=== PATIENT | female | born 1965 | race Caucasian/White ===

== ENCOUNTER 2016-09-29 07:49 | Inpatient (IN) ==
--- NOTE | 2016-09-29 07:44 | Discharge Summary ---
<Darcie Ahumada - Last Filed: 09/29/16 10:09> Date of Encounter: 09/29/16 - Discharge Diagnosis (1) Arthritis of knee Priority: Primary Status: Acute - Discharge Medications Home Medications: Atorvastatin [Lipitor] 40 mg PO HS 03/12/16 [History] EPINEPHrine [Epipen JR] 0.15 mg IJ ONCE #1 mls 03/12/16 [Rx] Loratadine [Claritin] 10 mg PO DAILY 03/12/16 [History] Aspirin Enteric Coated [Aspirin EC] 325 mg PO DAILY #21 tablet. 09/29/16 [Rx] BuPROPion XL (24 HR) [Wellbutrin XL] 150 mg PO DAILY 09/29/16 [History] Celecoxib [Celebrex] 200 mg PO DAILY 09/29/16 [History] Dicyclomine [Bentyl] 20 mg PO QID 09/29/16 [History] Duloxetine HCl [Cymbalta] 60 mg PO DAILY 09/29/16 [History] Gabapentin [Neurontin] 600 mg PO TID 09/29/16 [History] Metoprolol XL (24 HR) Succ [Toprol Xl] 50 mg PO DAILY 09/29/16 [History] Omeprazole [PriLOSEC] 40 mg PO BID 09/29/16 [History] OxyCODONE Immed Rel [Roxicodone 5 MG] 5 - 10 mg PO Q6HR PRN #40 tablet 09/29/16 [Rx] TraZODone 50 mg PO HS 09/29/16 [History] Allergies/Adverse Reactions: Allergies Sulfa (Sulfonamide Antibiotics) Allergy (Verified 09/29/16 08:41) Hives venom-honey bee [bee venom (honey bee)] Allergy (Verified 09/29/16 08:41) Anaphylaxis Primary care physician: Jag French CNP - Patient Status Disposition: Home, Self-Care Condition: Good - Discharge Instructions Follow Up With: Jag French CNP [Primary Care Provider] - - Hospital Course Hospital course: Ms. Mccoy is a 51 year old female - Time Spent with Patient Total time spent providing and/or coordinating discharge services: <Suman Angel - Last Filed: 10/01/16 07:52> Date of Encounter: 10/01/16 Time of Encounter: 07:52 - Discharge Diagnosis (1) Arthritis of knee Status: Acute (2) Arthritis of left knee Priority: Primary Status: Acute (3) Hypertension Priority: Secondary Status: Acute Qualifiers: Hypertension type: unspecified secondary hypertension Qualified Code(s): I15.9 - Secondary hypertension, unspecified; I15 - Secondary hypertension (4) Hyperlipidemia Priority: Secondary Status: Acute Qualifiers: Hyperlipidemia type: unspecified Qualified Code(s): E78.5 - Hyperlipidemia , unspecified (5) Acute blood loss anemia Status: Acute Primary care physician: Jag French CNP - Patient Status Functional capacity at discharge: uses cane/walker Overall status at discharge: patient is progressing back to baseline - Hospital Course Hospital course: Ms. Mccoy is a 51 year old female The patient had an uneventful postoperative course. They received antibiotics and physical therapy and were discharged in stable condition. There will follow -up in the office in 2 weeks. Aspirin DVT prophylaxis - Time Spent with Patient Total time spent providing and/or coordinating discharge services:
--- NOTE | 2016-09-29 08:01 | History & Physical Report ---
Date of Encounter: 09/29/16 Time of Encounter: 08:00 24 Hour HP Update - Instructions Instructions: If the History and Physical is less than 30 days old and was completed prior to A.M. admission and or procedure and has NOT been updated on calendar day of procedure please complete this update prior to performing procedure. - Update Patient reports changes in Medical Condition: No Changes in assessment/condition: No Changes in Medication: No Preop tests/diagnostics Reviewed: Yes Surgery Remains Indicated: Yes Consent for Planned Operative Procedure(s) Verified: Yes - Pre-Operative Checklist Preoperative Checklist Indicated: No Prophylactic Antibiotic Ordered: Yes Is VTE Prophylaxis Indicated?: Yes
[2016-09-29] MEDS ORDERED: Albuterol 2.5 MG/3 ML NEBULIZER IH ONE (08:24)
[2016-09-29] MEDS ORDERED: CeFAZolin Pre 2,000 MG/100 ML 2,000 MG/100 ML BAG IVPB ONE (08:24)
[2016-09-29] MEDS ORDERED: Ringers Solution, Lactated 500 ML IVC SCH (08:30)
[2016-09-29] MEDS ORDERED: *HR* FentaNYL (PF) 100 MCG/2 ML VIAL ONE (09:37)
[2016-09-29] MEDS ORDERED: *HR* Propofol 200 MG/20 ML VIAL IVP ONE (09:37)
[2016-09-29] MEDS ORDERED: *HR* Midazolam HCl 2 MG/2 ML VIAL ONE (09:37)
[2016-09-29] MEDS ORDERED: Lidocaine -MPF 2% 2 ML VIAL ONE (09:42)
--- NOTE | 2016-09-29 10:20 | Anesthesia Evaluation PreOp ---
Date of Encounter: 09/29/16 Time of Encounter: 10:15 - Past History Planned Operation: Left TKA Cardiac History: HTN, Hyperlipidemia Pulmonary History: Denies Any Significant HX MACHINE HEEL SEAT FITTER History: Denies Any Significant HX Other Medical History: Denies Any Significant HX : No Alcohol Use: none Drug use: none Medications and Allergies Atorvastatin [Lipitor] 40 mg PO HS 03/12/16 [History] EPINEPHrine [Epipen JR 2-Chris] 0.15 mg IJ ONCE #1 mls 03/12/16 [Rx] Loratadine [Claritin] 10 mg PO DAILY 03/12/16 [History] Aspirin Enteric Coated [Aspirin EC] 325 mg PO DAILY #21 tablet. 09/29/16 [Rx] Celecoxib [Celebrex] 200 mg PO DAILY 09/29/16 [History] Dicyclomine [Bentyl] 20 mg PO QID 09/29/16 [History] Duloxetine HCl [Cymbalta] 60 mg PO DAILY 09/29/16 [History] Gabapentin [Neurontin] 600 mg PO TID 09/29/16 [History] Metoprolol XL (24 HR) Succ [Toprol Xl] 50 mg PO DAILY 09/29/16 [History] Omeprazole [PriLOSEC] 40 mg PO BID 09/29/16 [History] OxyCODONE Immed Rel [Roxicodone 5 MG] 5 - 10 mg PO Q6HR PRN #40 tablet 09/29/16 [Rx] TraZODone 50 mg PO HS 09/29/16 [History] Allergies Sulfa (Sulfonamide Antibiotics) Allergy (Verified 09/29/16 08:41) Hives venom-honey bee [bee venom (honey bee)] Allergy (Verified 09/29/16 08:41) Anaphylaxis - Meds/Allergy Pre-op Review Medications Reviewed: Yes Allergies Reviewed: Yes Beta Blockers on Current Med List: No Anesthesia Results - Labs Laboratory Tests 09/15/16 09/15/16 09/15/16 15:40 15:40 15:40 Hgb 14.2 Hct 41.0 Plt Count 291 PT 11.2 INR 1.0 APTT 32.2 Sodium 140 Potassium 3.9 BUN 13 Creatinine 0.64 - Imaging EKG: report reviewed (NSR) Anesthesia Exam O2 Sat Height 1.7 m Height 1.7 m Height 1.7 m Weight 90.265 kg Weight 90.265 kg Weight 90.265 kg O2 Sat by Pulse Oximetry 97 O2 Sat by Pulse Oximetry 97 O2 Sat by Pulse Oximetry 97 Vital Signs Temp Pulse Resp BP Pulse Ox 98.1 F 85 18 119/72 97 09/29/16 08:08 09/29/16 08:08 09/29/16 08:08 09/29/16 08:08 09/29/16 08:08 Height: 5'6 Weight: 196 lbs NPO (# of Hours): MN - HEENT Pupil (Motor): Pupils equal, EOMI Mallampati: II Teeth: Normal Oral Opening: Greater than 3 - MACHINE HEEL SEAT FITTER LOC: Oriented MACHINE HEEL SEAT FITTER Motor: Normal RUE, Normal LUE, Normal RLE, Normal LLE, Normal Face MACHINE HEEL SEAT FITTER Sensory: Normal: RUE, LUE, RLE, LLE, Face - Cardiac Rhythm: Regular Murmur: None JVD: No Carotid Bruit: No - Pulmonary Breath Sounds: bilateral Clear Respiratory Effort: Symmetrical Anesthesia Assess/Plan ASA Score: 2 Modified Latasha Scale for Level of Consciousness: Cooperative, oriented, and tranquil Anesthetic Plan: General, Regional Monitoring Plan: Standard Monitors Recovery Plan: PACU (Discussed GA and RA, agrees to proceed)
[2016-09-29] MEDS ORDERED: Tetracaine/PF 20 MG/2 ML AMPUL SPINA ONE (11:00)
[2016-09-29] MEDS ORDERED: Ondansetron 4 MG/2 ML VIAL ONE ×2 (11:31→13:19)
[2016-09-29] MEDS ORDERED: Dexamethasone 4 MG/ML VIAL ONE ×2 (11:31→13:19)
[2016-09-29] MEDS ORDERED: *HR* HYDROmorphone 2 MG/ML SYRINGE ONE (11:50)
--- NOTE | 2016-09-29 12:04 | Orthopedic Operative Note ---
Date of procedure: 09/29/16 Pre-op diagnosis: Left knee arthritis Post-op diagnosis: same Procedure: Procedure: Left Total knee replacement Estimated blood loss: 200 cc Hardware: Arthrex Femur: 5 Tibia: 4 PS insert: 12 Patella: 37 Exam Under anesthesia: Full motion no instability Procedural Notes: Grade 4 arthritic changes medial compartment patellofemoral joint Operative procedure: The patient was brought to the operating room and placed on the operating room table. After general anesthesia was administered the operative knee was examined. Findings were noted in the exam under anesthesia. The operative extremity was prepped and draped in sterile surgical fashion. The patient received IV antibiotics prior to skin incision. A standard midline incision was made centered over the patella. The incision was made through the skin and subcutaneous tissue. A medial parapatellar tendon approach was performed. Care was taken to preserve tissue along the medial aspect of the patella. And to protect the patella tendon. The deep MCL was released off the medial tibia. The infra patella fat pad was excised. Knee was brought into flexion. Patient noted to have grade 4 arthritic changes medial compartment patellofemoral joint. The entry hole was made for the intramedullary femoral guide. The guide was seated in 6 degrees of valgus. Anterior cut was made followed by the distal cut. The ACL the PCL the medial and the lateral menisci were excised. The tibia was subluxed forward. The entry hole was made for the intramedullary tibial guide. Guide was seated to resect 2 mm off the more abnormal side. The knee was brought into flexion the distal femur was sized to a 5. The femoral guide was seated, the anterior cut was made followed by the posterior condylar cut, followed by the chamfer cuts. The finishing guide was seated the box cut was made and the lug holes were drilled. The tibia was sized to a 4, the tibial tray was seated and prepared with the large drill followed by the fin cutter. Trial reduction revealed full extension no varus valgus instability with the appropriate 12 PS Lizbeth. The patella was everted and cut was made at the level of the insertion of the quadriceps and patella tendon. The patella was sized to a 37 the guide was seated and the lug holes are drilled. Trial reduction revealed excellent patella tracking. All trial components were removed all bony surfaces were irrigated. The tibia was cemented first followed by the femur. The 12 PS Lizbeth was seated and the knee was brought into full extension. The patella was cemented and held in place with the patellar holding clamp. After the cement had hardened, the knee sat for 2 minutes with a Betadine saline solution. The knee was then irrigated out with 2 L of pulse irrigation. The extensor mechanism was closed with #2 FiberWire suture and #2 PDS suture. The subcutaneous tissue was then irrigated and closed deep with #1 PDS suture superficially with 0 PDS suture and skin was closed with skin tyrone and Dermabond. The patient was then placed in a sterile dressing and a postoperative brace extubated and transferred to recovery room in stable condition. Anesthesia: WINSOME Surgeon: Suman Angel Artificial Stone Applicator: Darcie Ahumada Condition: stable Disposition: PACU
[2016-09-29] MEDS ORDERED: *HR* HYDROmorphone (PF) 1 MG/ML SYRINGE IVP PRN (12:21)
[2016-09-29] MEDS ORDERED: *HR* Promethazine 25 MG/ML VIAL IVP PRN (12:21)
[2016-09-29] MEDS ORDERED: Ondansetron 4 MG/2 ML VIAL IVP ONE (12:21)
[2016-09-29] MEDS ORDERED: *HR* Labetalol 100 MG/20 ML MDV IVP PRN (12:21)
[2016-09-29] MEDS ORDERED: *HR* HYDROmorphone (PF) 1 MG/ML SYRINGE ONE (12:39)
[2016-09-29 13:15] LABS: Hematocrit 31.9 % (35.3-44.9); Hemoglobin 10.9 g/dL (11.5-15.4)
--- NOTE | 2016-09-29 13:22 | Anesthesia Evaluation Post Op ---
Date of Encounter: 09/29/16 Time of Encounter: 13:21 - Vital Signs Vital Signs: Vital Signs/O2 Sat/Glucose, Most Current Temp Pulse Resp BP Pulse Ox 09/29/16 13:15 80 16 133/74 97 09/29/16 13:05 97.6 F 79 16 121/70 97 09/29/16 12:55 73 16 142/82 96 09/29/16 12:45 78 16 172/76 94 L 09/29/16 12:35 97.7 F 83 18 141/80 93 L 09/29/16 11:10 79 17 113/66 94 L 09/29/16 10:54 85 16 117/77 96 - Lungs Lungs: Clear Ascult./Percussion - Airway Airway: Non-obstructed - Cardiovascular Regular Rate - Mental Status Mental Status: Alert & Oriented, Answers Appropriately - Pain Pain Scale: 2 - Nausea Vomiting Nausea Vomiting: Not Present - Hydration Hydration: Ice chips - Discharge PostOp Status: Transfer Patient to floor
[2016-09-29] MEDS ORDERED: MOM Conc 10 ML UD.LIQ PO PRN (13:52)
[2016-09-29] MEDS ORDERED: Naloxone 0.4 MG/ML INJ IVP PRN (13:52)
[2016-09-29] MEDS ORDERED: Albuterol Neb 1.25 MG/3 ML VIAL IH ONE (13:52)
[2016-09-29] MEDS ORDERED: Ringers Solution, Lactated 1,000 ML IVC SCH (13:52)
[2016-09-29] MEDS ORDERED: Temazepam 15 MG CAPSULE PO PRN (13:52)
[2016-09-29] MEDS ORDERED: Acetaminophen 325 MG TABLET PO PRN (13:52)
[2016-09-29] MEDS ORDERED: *HR* OxyCODONE Immed Rel 5 MG TABLET PO PRN (13:52)
[2016-09-29] MEDS ORDERED: Sennosides 8.6 MG TABLET PO PRN (13:52)
[2016-09-29] MEDS ORDERED: Ondansetron 4 MG/2 ML VIAL IVP PRN (13:52)
[2016-09-29] MEDS: *HR* OxyCODONE Immed Rel 5 MG TABLET PO PRN ×2 (14:24→19:29)
[2016-09-29] MEDS: Gabapentin 300 MG CAPSULE PO SCH ×2 (14:24→19:27)
[2016-09-29] MEDS: ceFAZolin 2,000 MG in D5% in Water 100 ML IVPB SCH ×2 (16:11→23:36)
[2016-09-29] MEDS: *HR* Enoxaparin 30 MG/0.3 ML SYRINGE SQ SCH (17:43)
[2016-09-29] MEDS: *HR* HYDROmorphone (PF) 1 MG/ML SYRINGE IVP PRN (17:57)
[2016-09-29] MEDS ORDERED: *HR* Enoxaparin 30 MG/0.3 ML SYRINGE SQ SCH (18:00)
[2016-09-29] MEDS: traZODone 50 MG TABLET PO SCH (19:27)
[2016-09-30] MEDS: *HR* HYDROmorphone (PF) 1 MG/ML SYRINGE IVP PRN ×2 (03:15→14:21)
[2016-09-30] MEDS: *HR* OxyCODONE Immed Rel 5 MG TABLET PO PRN ×4 (05:32→21:21)
[2016-09-30] MEDS: *HR* Enoxaparin 30 MG/0.3 ML SYRINGE SQ SCH ×2 (05:32→17:12)
[2016-09-30 05:58] LABS: Hematocrit 33.7 % (35.3-44.9); Hemoglobin 11.6 g/dL (11.5-15.4)
[2016-09-30 06:13] LABS: BUN/Creatinine Ratio 16 (6-26); Blood Urea Nitrogen 11 mg/dL (7-20); Calcium 9.1 mg/dL (8.6-10.8); Carbon Dioxide 26 mEq/L (19-29); Chloride 104 mEq/L (98-109); Glucose 103 mg/dL (70-99); Osmolality,Calculated 290 (280-300); Potassium 4.1 mEq/L (3.5-4.5); Sodium 140 mEq/L (136-145); eGFR For African Americans > 60 (> 60); eGFR For Non-African Americans > 60 (> 60)
--- NOTE | 2016-09-30 06:18 | Orthopedics Progress Note ---
Date of Encounter: 09/30/16 Time of Encounter: 06:17 - Assessment and Plan (1) Arthritis of knee Current Visit: Yes Status: Acute (2) Arthritis of left knee Current Visit: Yes Status: Acute (3) Hypertension Current Visit: Yes Status: Acute Qualifiers: Hypertension type: unspecified secondary hypertension Qualified Code(s): I15.9 - Secondary hypertension, unspecified; I15 - Secondary hypertension (4) Hyperlipidemia Current Visit: Yes Status: Acute Qualifiers: Hyperlipidemia type: unspecified Qualified Code(s): E78.5 - Hyperlipidemia , unspecified Subjective Interval history: Patient was seen this morning doing well without complaints. Afebrile vital signs stable. Operative extremity: Neurovascularly intact Dressing clean dry and intact Calves nontender Assessment and plan: Continue with postoperative care hematocrit 33 Objective Vital signs: Vital Signs Temp Pulse Resp BP Pulse Ox 09/30/16 03:44 97.5 F L 81 16 130/56 99 09/29/16 23:28 97.7 F 88 17 132/55 98 09/29/16 20:00 98.2 F 72 17 118/76 98 09/29/16 17:41 97.8 F 72 12 125/79 96 09/29/16 16:49 20 94 L 09/29/16 16:16 97.7 F 74 14 112/72 96 09/29/16 15:19 97.6 F 87 131/83 97 09/29/16 14:52 98.1 F 72 13 131/81 95 09/29/16 14:45 95 09/29/16 14:08 98.3 F 70 16 142/81 94 L 09/29/16 13:51 97.9 F 73 16 149/84 93 L 09/29/16 13:23 97.6 F 76 16 140/76 98 09/29/16 13:15 80 16 133/74 97 09/29/16 13:05 97.6 F 79 16 121/70 97 09/29/16 12:55 73 16 142/82 96 09/29/16 12:45 78 16 172/76 94 L 09/29/16 12:35 97.7 F 83 18 141/80 93 L 09/29/16 11:10 79 17 113/66 94 L 09/29/16 10:54 85 16 117/77 96 09/29/16 09:02 98.1 F 85 18 119/72 97 09/29/16 08:08 98.1 F 85 18 119/72 97 Intake and Output 09/29/16 09/29/16 09/30/16 15:59 23:59 07:59 Intake Total 960 / 960 240 / 240 Output Total 200 / 200 700 / 700 Balance -200 / -200 260 / 260 240 / 240 Intake: IV Fluids 100 / 100 Ancef 2,000 MG In 100 / 100 Dextrose 5% 100 ML @ 200 mls/hr IVPB Q8HR [facility] Rx#: [id number] Oral 860 / 860 240 / 240 Output: Urine 700 / 700 Estimated Blood Loss 200 / 200 Other: Meal Dinner Percent of Meal Consumed 90% Weight 90.265 kg - Labs CBC & BMP: 09/30/16 05:06 09/30/16 05:06 Labs: Abnormal lab results Hct 33.7 % (35.3-44.9) L 09/30/16 05:06 Glucose 103 mg/dL (70-99) H 09/30/16 05:06 - VTE Documentation of Mechanical Device: Venous foot pump, device Consult Discharge Plan - Plan Referrals: Jag French, DECK MOLDER [Primary Care Provider] -
[2016-09-30] MEDS: Loratadine 10 MG TABLET PO SCH (09:41)
[2016-09-30] MEDS: Metoprolol XL (24 HR) Succ 50 MG TAB.ER.24H PO SCH (09:41)
[2016-09-30] MEDS: Celecoxib 200 MG CAPSULE PO SCH (09:41)
[2016-09-30] MEDS: Gabapentin 300 MG CAPSULE PO SCH ×3 (09:41→20:39)
[2016-09-30] MEDS: traZODone 50 MG TABLET PO SCH (20:39)
[2016-10-01] MEDS: *HR* OxyCODONE Immed Rel 5 MG TABLET PO PRN ×2 (04:44→09:00)
[2016-10-01] MEDS: *HR* Enoxaparin 30 MG/0.3 ML SYRINGE SQ SCH (04:44)
[2016-10-01 06:29] LABS: Hematocrit 28.7 % (35.3-44.9)
[2016-10-01 06:38] LABS: Hemoglobin 9.8 g/dL (11.5-15.4)
[2016-10-01 06:45] VITALS: BP 116/66
[2016-10-01 06:46] LABS: BUN/Creatinine Ratio 18 (6-26); Blood Urea Nitrogen 12 mg/dL (7-20); Calcium 8.7 mg/dL (8.6-10.8); Carbon Dioxide 26 mEq/L (19-29); Chloride 103 mEq/L (98-109); Glucose 91 mg/dL (70-99); Osmolality,Calculated 285 (280-300); Potassium 3.8 mEq/L (3.5-4.5); Sodium 138 mEq/L (136-145); eGFR For African Americans > 60 (> 60); eGFR For Non-African Americans > 60 (> 60)
--- NOTE | 2016-10-01 07:53 | Orthopedics Progress Note ---
Date of Encounter: 10/01/16 Time of Encounter: 07:53 - Assessment and Plan (1) Arthritis of knee Current Visit: Yes Status: Acute (2) Arthritis of left knee Current Visit: Yes Status: Acute (3) Hypertension Current Visit: Yes Status: Acute Qualifiers: Hypertension type: unspecified secondary hypertension Qualified Code(s): I15.9 - Secondary hypertension, unspecified; I15 - Secondary hypertension (4) Hyperlipidemia Current Visit: Yes Status: Acute Qualifiers: Hyperlipidemia type: unspecified Qualified Code(s): E78.5 - Hyperlipidemia , unspecified (5) Acute blood loss anemia Current Visit: Yes Status: Acute Subjective Interval history: Patient was seen this morning doing well without complaints. Afebrile vital signs stable. Operative extremity: Neurovascularly intact Dressing clean dry and intact Calves nontender Assessment and plan: Continue with postoperative care Hemoglobin 9.8 discharged today Objective Vital signs: Vital Signs Temp Pulse Resp BP Pulse Ox 10/01/16 06:44 98.4 F 92 18 116/66 94 L 10/01/16 02:01 98.1 F 104 16 129/78 93 L 09/30/16 20:16 98.2 F 103 16 103/64 96 09/30/16 14:53 98.7 F 74 16 103/63 94 L 09/30/16 10:34 98.1 F 86 16 127/71 96 Intake and Output 09/30/16 09/30/16 10/01/16 15:59 23:59 07:59 Intake Total 120 / 120 Balance 120 / 120 Intake: Oral 120 / 120 Other: Meal Breakfast Percent of Meal Consumed 100% # Voids 1 - Labs CBC & BMP: 10/01/16 05:57 10/01/16 05:57 Labs: Abnormal lab results Hgb 9.8 g/dL (11.5-15.4) L D 10/01/16 05:57 Hct 28.7 % (35.3-44.9) L 10/01/16 05:57 - VTE Documentation of Mechanical Device: Venous foot pump, device Consult Discharge Plan - Plan Referrals: Jag French, MACHINE SET UP OPERATOR [employer] [Primary Care Provider] -
[2016-10-01] MEDS: Metoprolol XL (24 HR) Succ 50 MG TAB.ER.24H PO SCH (09:01)
[2016-10-01] MEDS: Celecoxib 200 MG CAPSULE PO SCH (09:01)
[2016-10-01] MEDS: Gabapentin 300 MG CAPSULE PO SCH (09:02)
[2016-10-01] MEDS: Loratadine 10 MG TABLET PO SCH (09:02)
== END 2016-10-01 11:30 | disposition home or self-care (01) | DRG 302 ==
LOC: SAMDAY 07:49 → 3NENU 13:30
PROVIDERS: ADMIT Orthopaedic Surgery; ATTEND Orthopaedic Surgery

== ENCOUNTER 2019-04-04 10:17 | Inpatient (IN) ==
--- NOTE | 2019-04-04 08:16 | Discharge Summary ---
<Antoinette Marti - Last Filed: 04/04/19 08:14> Date of Encounter: 04/04/19 - Hospital Course Hospital course: Ms. Mccoy is a 53 year old female - Time Spent with Patient Total time spent providing and/or coordinating discharge services: - Discharge Medications Prescriptions: Continued Methotrexate [Otrexup] 15 mg PO TU Metformin HCl [Fortamet] 500 mg PO DAILY Leucovorin Calcium [Wellcovorin] 5 mg PO WE HYDROcodone/Acet 5/325 mg [Morrill 5-325 mg] 1 tab PO Q6H PRN PRN Reason: Mild To Moderate Pain Gabapentin 600 mg PO TID EPINEPHrine [Epinephrine] 0.3 mg IM ONCE PRN PRN Reason: Allergic Reaction Duloxetine HCl [Cymbalta] 60 mg PO DAILY Celecoxib [Celebrex] 200 mg PO DAILY Montelukast [Singulair] 10 mg PO DAILY Diltiazem CD (24hr) [Cardizem CD] 180 mg PO DAILY Atorvastatin Calcium [Lipitor] 80 mg PO HS Home Medications: Atorvastatin Calcium [Lipitor] 80 mg PO HS 04/04/19 [History] Celecoxib [Celebrex] 200 mg PO DAILY 04/04/19 [History] Diltiazem CD (24hr) [Cardizem CD] 180 mg PO DAILY 04/04/19 [History] Duloxetine HCl [Cymbalta] 60 mg PO DAILY 04/04/19 [History] EPINEPHrine [Epinephrine] 0.3 mg IM ONCE PRN 04/04/19 [History] Gabapentin 600 mg PO TID 04/04/19 [History] HYDROcodone/Acet 5/325 mg [[place] 5-325 mg] 1 tab PO Q6H PRN 04/04/19 [History] Leucovorin Calcium [Wellcovorin] 5 mg PO WE 04/04/19 [History] Metformin HCl [Fortamet] 500 mg PO DAILY 04/04/19 [History] Methotrexate [Otrexup] 15 mg PO TU 04/04/19 [History] Montelukast [Singulair] 10 mg PO DAILY 04/04/19 [History] Allergies/Adverse Reactions: Allergy/AdvReac Type Severity Reaction Status Date / Time Sulfa (Sulfonamide Allergy Hives Verified 04/04/19 11:21 Antibiotics) venom-honey bee Allergy Anaphylaxis Verified 04/04/19 11:21 [bee venom (honey bee)] Primary care physician: Jag French CNP - Patient Status Disposition: Home Health Service Condition: Good - Discharge Instructions Follow Up With: Jag French CNP [Primary Care Provider] - Additional Instructions: Discharge Instructions: Total Knee Replacement Please call [facility] ([phone]), your Primary Care Physician, or report to the Emergency Room if you have any of the following symptoms: Nausea, vomiting, fever greater that 101.5, swelling, chest pain, shortness of breath, increased pain/redness/drainage/odor for your incision site, numbness/tingling, or any other concerning symptoms. ACTIVITY:Weight-bearing as tolerated. You may progress off support (crutches or walker) as tolerated. Incentive Spirometer 10 times an hour. MEDICATIONS: Upon discharge resume your home medications. Take all the medications as prescribed. Take a stool softener if taking narcotic pain medications. Stool softeners are only effective if you drink enough fluids. Drink 6-8 glass of water or fluids a day, unless this is not allowed for another health problem. Despite using stool softeners, if you haven't had a bowel mov ement in 3 days, please switch to a gentle laxative. Gentle laxatives are sold over the counter. You should have a bowel movement within 24 hours, if not call the office. You will be discharged from the hospital with a prescription for pain medication. You are encouraged to decrease the use of narcotic pain medication as tolerated. Should you require a refill, please call the office. [facility] prescribes narcotic pain medication for only 4-6 weeks after surgery. If you require pain medication beyond this time period, you may be referred to your Primary Care Physician or to the Pain Clinic for further evaluation. Plan ahead for refills on pain medication as many narcotics either need to be picked up at the office or mailed. It is best to call 48-72 hours in advance of needing a prescription refill so you don't run out of medication. To help control the post-operative pain, you may take NSAIDs (Aleve,Advil, Motrin, Ibuprofen, Naprosyn) or Tylenol as prescribed on the bottle in addition to the pain medication. ANTICOAGULATION (blood thinners): Continue your Aspirin, Lovenox or Coumadin as prescribed to help prevent a blood clot in the leg or in the lungs. As long as your incision remains dry and you tolerate the NSAIDs (Aleve, Advil, Motrin, ibuprofen, naprosyn), it is OK to use the NSAIDS while you are taking your anticoagulation medication. Should your incision start to drain, stop the NSAID and contact our office. Common symptoms of blood clot in the legs include: localized pain, swelling, calf tenderness, redness or discoloration of the skin. Blood clot in the lung symptoms include: shortness of breath, rapid pulse, sweating, and chest pain that worsens with deep breathing, coughing up blood, lightheadedness, feelings of anxiety. If you experience any of these symptoms notify your physician immediately, go to the emergency room, or if having trouble breathing, call 911. WOUND CARE: Leave the dressing on for 7 to 10days. You may change the dressing if it becomes saturated greater than 50%. Do not get the dressing wet at anytime. Wash your hands with antibacterial soap, rinse and dry prior to any wound care. If you have tyrone the visiting nurse or rehab facility can remove the stapes 10-14 days after surgery and place steri-strips across the wound. Leave the steri-strips in place until they fall off on their won. You may let water from the shower run on top of the steri-strips. If you do not have a visiting nurse or rehab facility, you will need to return to the office at 10-14 days for the tyrone to be removed. If you have itching or redness around the dressing call the office. FOLLOW-UP: Please follow up with your surgeon in the orthopedic clinic in 4 weeks from the day of surgery. If you have tyrone that need to be removed, you will need to come back to the office in 10-14 days from the day of surgery. <Antoinette Coon - Last Filed: 04/05/19 15:05> - NOTES TO OUTPATIENT PROVIDER Notes to Outpatient Provider: repeat CBC in 48hrs to confirm WBC has improved Date of Encounter: 04/05/19 Time of Encounter: 11:50 - Discharge Diagnosis (1) Status post revision of total replacement of right knee Priority: Primary Status: Acute (2) Loosening of knee joint prosthesis Priority: Primary Status: Acute Qualifiers: Encounter type: sequela Qualified Code(s): T84.038S - Mechanical loosening of other internal prosthetic joint, sequela; Z96.659 - Presence of unspecified artificial knee joint (3) Diabetes mellitus Priority: Secondary Status: Chronic Qualifiers: Diabetes mellitus type: type 2 Diabetes mellitus usp insulin use: unspecified usp insulin use status Diabetes mellitus complication status: without complication Qualified Code(s): E11.9 - Type 2 diabetes mellitus without complications (4) Depression with anxiety Priority: Secondary Status: Chronic (5) Fibromyalgia Priority: Secondary Status: Chronic (6) Acid reflux Priority: Secondary Status: Chronic Qualifiers: Esophagitis presence: esophagitis presence not specified Qualified Code(s): K21.9 - Gastro-esophageal reflux disease without esophagitis (7) Rheumatoid arthritis Priority: Secondary Status: Chronic Qualifiers: Rheumatoid arthritis location: unspecified site Rheumatoid factor presence: unspecified presence Qualified Code(s): M06.9 - Rheumatoid arthritis, unspecified (8) Chronic pain Priority: Secondary Status: Chronic Qualifiers: Chronic pain type: chronic pain syndrome Qualified Code(s): G89.4 - Chronic pain syndrome (9) Hyperlipidemia Priority: Secondary Status: Chronic Qualifiers: Hyperlipidemia type: unspecified Qualified Code(s): E78.5 - Hyperlipidemia, unspecified (10) Hypertension Priority: Secondary Status: Chronic Qualifiers: Hypertension type: unspecified Qualified Code(s): I10 - Essential (primary) hypertension (11) Obesity (BMI 30.0-34.9) Priority: Secondary Status: Chronic (12) Tobacco use Priority: Secondary Status: Chronic - Hospital Course Hospital course: Ms. Mccoy is a 53 year old female status post right TKR revision secondary to loosening of hardware 04/04/19 with medical history of HTN, DM, tobacco use, obesity, depression/anxiety, fibromyalgia, chronic pain medication, reflux, rheumatoid arthritis. She participated in therapy and had an uneventful hospital course. She is stable for discharge and will follow up in [facility] office next week. POD#1 s/p right TKR 04/04 Patient seen at bedside, without complaints related to knee. She was concerned about several events with staff during stay and has already been in contact with nurse staff development manager and patient advocate about her concerns. A&O x 3 Afebrile, vital signs stable. Labs reviewed. H/H - 11.3/34.2 stable, asymptomatic WBC elevated today, no concern for infection at this time. will have home health repeat CBC in 48hrs to confirm this improves. Pain control: adequate Participating in PT. All questions and concerns addressed. Educated on use of incentive spirometer. Encouraged ambulation and proper hydration. Patient educated on post-operative restrictions and post-operative care. Assessment and plan: Continue with postoperative care Discharge plan: Home with home health, discharge today. - Time Spent with Patient Total time spent providing and/or coordinating discharge services: Date of admission: 04/04/19 Primary care physician: Jag French CNP Consults: 04/04/19 17:08 Consult to Nutrition [CONS] Routine Comment: Consulting Provider: NUTRITION Reason for Dietary Consult: Other Other:: Proper nutrition to facilitate wound healing Consult to Orthopedic Navigator [CONS] [CONS] Routine Consult to Physical Therapy [CONS] Routine Comment: Evaluate, develop and impliment POC Reason for Consult: post knee surgery Does patient have active BEDREST order?: No Is patient medically & hemodynamically stable?: Yes Consult to Ice Crusher [CONS] Routine Reason for SW Consult: post op joint replacement RT Post Op Consult [CONS] Routine 04/04/19 17:11 Consult to Pastoral Services [CONS] Routine Comment: Discharging clinician: Suman Angel Anticipated date of discharge: 04/05/19 Labs on day of discharge: Short CBC 04/05/19 04/04/19 Range/Units 06:22 16:23 WBC 21.2 H (4.3-11.1) K/mcL Hgb 11.3 L 12.5 (11.5-15.4) g/dL Hct 34.2 L 37.7 (35.3-44.9) % Plt Count 262 (140-400) K/mcL Neutrophils # 18.8 H (1.6-8.9) K/mcL BMP 04/05/19 Range/Units 06:22 Sodium 138 (136-145) mEq/L Potassium 4.7 (3.5-5.1) mEq/L Chloride 103 (98-107) mEq/L Carbon Dioxide 25 (23-29) mEq/L BUN 12 (6-20) mg/dL Creatinine 0.63 (0.60-1.20) mg/dL Glucose 229 H (70-105) mg/dL Calcium 9.1 (8.6-10.3) mg/dL - Impressions Knee X-Ray 04/04/19 01:00 IMPRESSION: Status post revision arthroplasty of the right knee. No acute postoperative complication. D/ / 04/04/2019 16:33:49 Bart Griffin MD / [email or web address] Interpreting Provider: Bart Griffin MD - Patient Status Functional capacity at discharge: uses cane/walker Overall status at discharge: patient is back to baseline - Diet and Activity Activity: ambulate only with your walker, as per physical therapy Diet: advance to your usual diet
--- NOTE | 2019-04-04 09:04 | Anesthesia Evaluation PreOp ---
Date of Encounter: 04/04/19 Time of Encounter: 10:55 - Past History Planned Operation: RIGHT TKA Cardiac History: HTN, Hyperlipidemia Pulmonary History: Smoker MACHINING MANAGER History: Other (RA ON METHOTREXATE, FIBROMYALGIA, ANXIETY, DEPRESSION,) Other Medical History: Diabetes Type II, GERD (OCCASIONAL, TUMS), Other (OBESITY) Anesthesia History: No Prior Anesthetic Complications, Past Anesthesia Alcohol Use: none Drug use: none Medications and Allergies Atorvastatin [Lipitor] 80 mg PO HS 03/12/16 [History] Loratadine [Claritin] 10 mg PO DAILY 03/12/16 [History] Celecoxib [Celebrex] 100 mg PO DAILY 09/29/16 [History] Duloxetine HCl [Cymbalta] 60 mg PO DAILY 09/29/16 [History] Gabapentin [Neurontin] 600 mg PO TID 09/29/16 [History] Metoprolol XL (24 HR) Succ [Toprol Xl] 50 mg PO DAILY 09/29/16 [History] Aspirin Enteric Coated [Aspirin EC] 81 mg PO DAILY 11/18/16 [History] Losartan [Cozaar] 50 mg PO DAILY 05/27/18 [History] Aspirin Enteric Coated [Aspirin EC] 325 mg PO BID #20 tablet. 08/14/18 [Rx] EPINEPHrine [Epipen] 0.3 mg IM ONCE PRN 08/14/18 [History] Metformin HCl 500 mg PO DAILY 08/14/18 [History] Montelukast [Singulair] 10 mg PO DAILY 08/14/18 [History] Aspirin Enteric Coated [Aspirin EC] 325 mg PO BID 10 Days #20 tablet. 04/04/19 [Rx] Allergy/AdvReac Type Severity Reaction Status Date / Time Sulfa (Sulfonamide Allergy Hives Verified 03/29/19 08:53 Antibiotics) venom-honey bee Allergy Anaphylaxis Verified 03/29/19 08:53 [bee venom (honey bee)] - Meds/Allergy Pre-op Review Medications Reviewed: Yes Allergies Reviewed: Yes Beta Blockers on Current Med List: No Anesthesia Results - Labs REVIEWED, WNL Anesthesia Exam REVIEWED Weight: 95 KG - BMI 33 NPO (# of Hours): 8 - HEENT Mallampati: III Teeth: Normal - Cardiac Rhythm: Regular - Pulmonary Breath Sounds: bilateral Clear Anesthesia Assess/Plan ASA Score: 3 Anesthetic Plan: Regional Nerve Block, Spinal Monitoring Plan: Standard Monitors Recovery Plan: PACU
[~2019-04-04 10:17] MED LIST: *HR* HYDROmorphone (PF) 1 MG/ML SYRINGE IVP PRN; *HR* Labetalol 20 MG/4 ML SYRINGE IVP PRN; *HR* OxyCODONE Immed Rel 5 MG TABLET PO PRN; *HR* Promethazine 25 MG/ML VIAL IVP PRN; Acetaminophen IV 1,000 MG/100 ML INFUS..BTL IVPB ONE; Gabapentin 300 MG CAPSULE PO ONE; Ipratropium/Albuterol Neb 3 ML IH PRN; Ketorolac 30 MG/ML VIAL IVP ONE; Ondansetron 4 MG/2 ML VIAL IVP ONE; traMADol 50 MG TABLET PO ONE
[2019-04-04] MEDS ORDERED: CeFAZolin Syr 2,000MG/20 ML 2,000 MG/20 ML SYRINGE IVPB ONE (10:59)
[2019-04-04] MEDS ORDERED: Albuterol 2.5 MG/3 ML NEBULIZER IH ONE (10:59)
[2019-04-04] MEDS ORDERED: Ringers Solution, Lactated 1,000 ML IVC SCH (11:00)
--- NOTE | 2019-04-04 11:30 | History & Physical Report ---
Date of Encounter: 04/04/19 Time of Encounter: 11:30 24 Hour HP Update - Instructions Instructions: If the History and Physical is less than 30 days old and was completed prior to A.M. admission and or procedure and has NOT been updated on calendar day of procedure please complete this update prior to performing procedure. - Update Patient reports changes in Medical Condition: No Changes in examination, assessment, or condition: No Changes in Medication: No Preop tests/diagnostics Reviewed: Yes Surgery Remains Indicated: Yes Consent for Planned Operative Procedure(s) Verified: Yes - Pre-Operative Checklist Preoperative Checklist Indicated: No Prophylactic Antibiotic Ordered: Yes Is VTE Prophylaxis Indicated?: Yes
[2019-04-04] MEDS ORDERED: *HR* FentaNYL (PF) 100 MCG/2 ML VIAL ONE (11:36)
[2019-04-04] MEDS ORDERED: Lidocaine -MPF 2% 2 ML VIAL ONE (11:37)
[2019-04-04] MEDS ORDERED: *HR* Midazolam HCl 2 MG/2 ML VIAL ONE (11:37)
--- NOTE | 2019-04-04 11:48 | Physician Discharge Referral ---
Home Health/Hosp Referral Info Transfer to: Home Health Attending Provider: Dr. Angel - Diagnosis (1) Status post revision of total replacement of right knee Priority: Primary Status: Acute (2) Loosening of knee joint prosthesis Priority: Primary Status: Acute (3) Diabetes mellitus Priority: Secondary Status: Chronic (4) Depression with anxiety Priority: Secondary Status: Chronic (5) Fibromyalgia Priority: Secondary Status: Chronic (6) Acid reflux Priority: Secondary Status: Chronic (7) Rheumatoid arthritis Priority: Secondary Status: Chronic (8) Chronic pain Priority: Secondary Status: Chronic (9) Hyperlipidemia Priority: Secondary Status: Chronic (10) Hypertension Priority: Secondary Status: Chronic (11) Obesity (BMI 30.0-34.9) Priority: Secondary Status: Chronic (12) Tobacco use Priority: Secondary Status: Chronic - Respiratory Orders None Smoking Cessation: Smoking cessation has been advised. For more information, call the [place] Tobacco Quit Line at 4-291-UVYJ-NOW. - Diet/Nutrition Diet/Nutrition Orders: Regular - Activity Activity Orders: Ambulate, Chair, Walker - Services Needed Following services are medically necessary services: Nursing, Home Health Aide, Physical Therapy, Occupational Therapy Home Care Orders: Opsite dressing, leave intact until first post-operative visit. If dressing becomes >50% saturated, contact office, remove dressing and place appropriate dressing in its place. Do not allow for dressing to get wet. Zipline/Higinio in place, plan to remove at post-operative day #14-16. Total Joint Precautions x 6 weeks Apply cold therapy wrap 3-6x/day for 20 minutes at a time. Encourage ambulation throughout the day Use Incentive spirometer 10x/hour. Elevate affected extremity above heart as tolerated. Brace: Wear knee immobilizer at night x 2 weeks. WBC elevated today - repeat CBC in 48hrs to confirm this comes back down - Transfer Medications Home Medications: Atorvastatin Calcium [Lipitor] 80 mg PO HS 04/04/19 [History] Celecoxib [Celebrex] 200 mg PO DAILY 04/04/19 [History] Diltiazem CD (24hr) [Cardizem CD] 180 mg PO DAILY 04/04/19 [History] Duloxetine HCl [Cymbalta] 60 mg PO DAILY 04/04/19 [History] EPINEPHrine [Epinephrine] 0.3 mg IM ONCE PRN 04/04/19 [History] Gabapentin 600 mg PO TID 04/04/19 [History] HYDROcodone/Acet 5/325 mg [[place] 5-325 mg] 1 tab PO Q6H PRN 04/04/19 [History] Leucovorin Calcium [Wellcovorin] 5 mg PO WE 04/04/19 [History] Metformin HCl [Fortamet] 500 mg PO DAILY 04/04/19 [History] Methotrexate [Otrexup] 15 mg PO TU 04/04/19 [History] Montelukast [Singulair] 10 mg PO DAILY 04/04/19 [History] Allergies/Adverse Reactions: Allergy/AdvReac Type Severity Reaction Status Date / Time Sulfa (Sulfonamide Allergy Hives Verified 04/04/19 11:21 Antibiotics) venom-honey bee Allergy Anaphylaxis Verified 04/04/19 11:21 [bee venom (honey bee)] Certification: Further, I certify that my clinical findings support that this patient is homebound (i.e. absences from home require considerable and taxing effort and are for medical reasons or adventism services or infrequently or short duration when for other reasons) because: Homebound Reason: Post-surgery restriction and or conditions limit ability to leave home Attestation: My signature below is to certify that this patient is under my care and that I, or nurse practitioner, or a physician life science research assistant working with me, has a [id number] encounter with this patient.
[2019-04-04] MEDS ORDERED: Propofol 500 MG/50 ML INFUS..BTL ONE (11:50)
[2019-04-04] MEDS ORDERED: Tranexamic Acid 1,000 MG/10 ML VIAL ONE (11:52)
[2019-04-04] MEDS ORDERED: Bupivacaine/PF 0.75% in Dex 2 ML AMPUL INFILT ONE (12:41)
[2019-04-04] MEDS ORDERED: ROPIVACAINE/PF/NS 0.25% 1 EACH SYRINGE INTRAART ONE (12:41)
[2019-04-04] MEDS ORDERED: Ethanol\\Acetic Acid\\Na Ace\\Ben 1,000 ML IRRIG.SOLN IR ONE (13:15)
[2019-04-04] MEDS ORDERED: Ropivacaine/PF 0.5% 24.62 ML, EPINEPHrine 0.25 MG, Ketorolac 15 MG, Water for inj. (ste... IR ONE (13:25)
[2019-04-04] MEDS ORDERED: *HR* Phenylephrine 10 MG/ML VIAL ONE (13:55)
[2019-04-04] MEDS ORDERED: *HR* Propofol 200 MG/20 ML VIAL IVP ONE ×2 (14:27→15:39)
--- NOTE | 2019-04-04 14:45 | Anesthesia Procedures ---
Date of Encounter: 04/04/19 Time of Encounter: 13:15 Procedures: Anesthesia - Epidural/Spinal Patient ID/Chart reviewed: Yes Supplemental Oxygen Rate (L/min): 2 Site Prep: 0.5% Chlorhexidine/Alcohol Patient position: upright Local Anesthetic: Lidocaine 1% Amount of Local Anesthetic used: 3 Interspace Used: L4-L5 Blood: No CSF: No Paresthesia: No Spinal Needle Gauge: 25 (pencan) Spinal Dose: 2 Procedure: spinal for total knee revision - Nerve Block Procedure Date: 04/04/19 Time: 13:15 Allergies/Adv Reactions: Allergies Sulfa (Sulfonamide Antibiotics) Allergy (Verified 04/04/19 11:21) Hives venom-honey bee [bee venom (honey bee)] Allergy (Verified 04/04/19 11:21) Anaphylaxis Surgical Procedure: right toal knee replacement, revision Checklist: Correct Patient Identifier, Correct procedure, History checked Correct side: Right Blood Thinner: No Monitor Applied: EKG, BP, Pulse Oximetry Supplemental Oxygen via Nasal Cannula (L/min): 2 Sedation: Versed (mg): 2 Sedation: Fentanyl (mcg): 100 Indication: Post Op Analgesia Pre-op Neuro Deficits: No Block Type: Other (adductor canal ) Catheter placed: No Sterile Technique: Yes Ultrasound used: Yes Anatomy identified: Yes Visual spread of Local: Yes Blood on Needle Aspiration: No Smooth Injection of Local: Yes Pain with Injection of Local: No Prep: Chlorhexadine Needle: 21 x 100 mm Stimuplex Local: Ropivacaine (and decadron) Volume (cc): 10 Complications: None/effective block Vitals: Vital Signs Temperature 98.3 F 04/04/19 10:41 Pulse Rate 98 04/04/19 10:41 Respiratory Rate 04/04/19 10:41 Blood Pressure 153/81 04/04/19 10:41 O2 Sat by Pulse Oximetry 96 04/04/19 10:41 Temperature 98.3 F 04/04/19 10:41 Pulse Rate 81 04/04/19 13:25 Respiratory Rate 18 04/04/19 10:41 Blood Pressure 112/86 04/04/19 13:25 O2 Sat by Pulse Oximetry 94 04/04/19 13:25 Comments: placed per Oj AMEYA under supervision of Keyshawn Solis CRNA
--- NOTE | 2019-04-04 15:17 | Orthopedic Operative Note ---
Date of procedure: 04/04/19 Pre-op diagnosis: Painful right total knee Post-op diagnosis: same Procedure: Procedure: Right revision robotic-assisted Total knee replacement Estimated blood loss: 300 cc Hardware: Metal and polyethylene replacement. Lisa Femur: 2 TS, 15 x 100 stem Tibia: 2, 12 x 100 stem TS insert: 19 Exam Under anesthesia: 0 degrees flexion-extension 6 degrees varus as calculated by the robot full flexion and no instability Procedural Notes: No obvious abnormalities, components well fixed. Operative procedure: The patient was brought to the operating room and placed on the operating room table. After general anesthesia was administered the operative knee was examined. Findings were noted in the exam under anesthesia. The operative extremity was prepped and draped in sterile surgical fashion. The patient received IV antibiotics prior to skin incision. A standard midline incision was made centered over the patella. The incision was made through the old incision, through the skin and subcutaneous tissue. A medial parapatellar t endon approach was performed. Care was taken to preserve tissue along the medial aspect of the patella. And to protect the patella tendon. The deep MCL was released off the medial tibia. The infra patella fat pad was excised. Normal fluid was encountered, cultures were obtained. The patella was everted the surface examined, no abnormalities. Knee was brought into flexion. Steinmann pins were placed in the tibia and the femur for the tibial and femoral arrays respectively. Checkpoints were also placed in the tibia and the femur for calculation purposes. The knee including the femur and the tibial registered. Care was taken to remove both the tibial and femoral components after the poly-was removed. This was done with an oscillating saw osteotome without significant bone loss on either the femur or the tibia. Both the tibial and femoral surfaces were mapped to confirm position on the computer. Femoral cuts were made first with robotic assistance, these included the anterior cut posterior cuts chamfer cuts. Tibial cut was then performed with robotic assistance as well. Bone fragments were removed, as well as the medial and lateral meniscus. The size 2 femoral guide was seated box cut was made lug holes are drilled. The size 2 tibial tray was seated and prepared with the fin cutter. Trial reduction with the 19 TS Lizbeth revealed extension of 0 degree and 3 degre es varus full flexion. No varus valgus instability. Trial reduction revealed excellent patella tracking. Arrays were removed, femur was reamed up to a 15 x 100, tibia was reamed up to a 12 x 100 trials had good fit and fixation. All trial components were removed all bony surfaces were irrigated. Components were assembled on the back table. The Tibia was seated followed by the femur, The selected Lizbeth size was seated and secured. Patient had similar findings for motion and stability. The knee was closed by the PA. The knee was then irrigated out with 2 L of pulse irrigation. The extensor mechanism was closed with #2 FiberWire suture and #2 PDS suture. The subcutaneous tissue was then irrigated and closed deep with #1 PDS suture superficially with 0 PDS suture and skin was closed with zip tie The patient was then placed in a sterile dressing and a postoperative brace extubated and transferred to recovery room in stable condition. Anesthesia: spinal Surgeon: Suman Angel Was there an nurses assistant present: No Estimated blood loss (cc): 300 Condition: stable Disposition: PACU
[2019-04-04 16:48] LABS: Hematocrit 37.7 % (35.3-44.9); Hemoglobin 12.5 g/dL (11.5-15.4)
[2019-04-04] MEDS ORDERED: traMADol 50 MG TABLET PO PRN (17:08)
[2019-04-04] MEDS ORDERED: Naloxone 0.4 MG/ML INJ IVP PRN (17:08)
[2019-04-04] MEDS ORDERED: Sennosides 8.6 MG TABLET PO PRN (17:08)
[2019-04-04] MEDS ORDERED: Dextrose Gel 15 GM/37.5 ML TUBE PO PRN ×2 (17:08)
[2019-04-04] MEDS ORDERED: Temazepam 15 MG CAPSULE PO PRN (17:08)
[2019-04-04] MEDS ORDERED: *HR* Dextrose 50 % in Water (Syg) 50 ML SYRINGE IVP PRN (17:08)
[2019-04-04] MEDS ORDERED: Ondansetron 4 MG/2 ML VIAL IVP PRN (17:08)
[2019-04-04] MEDS ORDERED: D5% in Water 1,000 ML IVC PRN (17:08)
[2019-04-04] MEDS ORDERED: *HR* OxyCODONE Immed Rel 5 MG TABLET PO PRN (17:08)
[2019-04-04] MEDS ORDERED: MOM Conc 10 ML UD.LIQ PO PRN (17:08)
[2019-04-04] MEDS ORDERED: *HR* Promethazine 25 MG/ML VIAL IVP PRN (17:08)
[2019-04-04] MEDS ORDERED: EPINEPHrine 1 MG/ML VIAL IM PRN (17:08)
--- NOTE | 2019-04-04 17:56 | Anesthesia Evaluation Post Op ---
Date of Encounter: 04/04/19 Time of Encounter: 16:35 - Vital Signs Vital Signs: Vital Signs Temperature 98.3 F 04/04/19 10:41 Pulse Rate 98 04/04/19 10:41 Respiratory Rate 18 04/04/19 10:41 Blood Pressure 153/81 04/04/19 10:41 O2 Sat by Pulse Oximetry 96 04/04/19 10:41 Temperature 97.5 F L 04/04/19 17:08 Pulse Rate 78 04/04/19 17:08 Respiratory Rate 16 04/04/19 17:08 Blood Pressure 119/74 04/04/19 17:08 O2 Sat by Pulse Oximetry 95 04/04/19 17:08 - Lungs Lungs: Clear Ascult./Percussion - Airway Airway: Non-obstructed - Cardiovascular Regular Rate - Mental Status Mental Status: Alert & Oriented, Answers Appropriately - Pain Pain Scale: 1 Pain Scale used: Numeric (1 - 10) - Nausea Vomiting Nausea Vomiting: Not Present - Hydration Hydration: Tolerates oral liquids - Discharge PostOp Status: Transfer Patient to floor
[2019-04-04] MEDS ORDERED: *HR* Enoxaparin 30 MG/0.3 ML SYRINGE SQ SCH (18:00)
[2019-04-04] MEDS: Gabapentin 300 MG CAPSULE PO SCH ×2 (19:00→22:14)
[2019-04-04] MEDS: *HR* Enoxaparin 30 MG/0.3 ML SYRINGE SQ SCH (19:00)
[2019-04-04] MEDS: Ascorbic Acid 500 MG TABLET PO SCH (19:00)
[2019-04-04] MEDS: Insulin LISPRO 300 UNITS/3 ML VIAL SQ SCH (19:04)
[2019-04-04] MEDS ORDERED: Insulin LISPRO 300 UNITS/3 ML VIAL SQ SCH (21:00)
[2019-04-05] MEDS: HYDROcodone BIT/Homatropine 5 MG TABLET PO PRN ×2 (03:14→09:35)
[2019-04-05] MEDS: *HR* Enoxaparin 30 MG/0.3 ML SYRINGE SQ SCH (06:13)
--- NOTE | 2019-04-05 06:36 | Orthopedics Progress Note ---
Date of Encounter: 04/05/19 Time of Encounter: 06:35 Subjective Interval history: Patient was seen this morning doing well without complaints. Afebrile vital signs stable. Operative extremity: Neurovascularly intact Dressing clean dry and intact Calves nontender Assessment and plan: Continue with postoperative care Hematocrit 37 plan for discharge today Objective Vital signs: Vital Signs Temp Pulse Resp BP Pulse Ox 04/05/19 03:14 98.6 F 95 18 119/72 95 04/04/19 23:04 98.5 F 92 18 110/66 93 04/04/19 19:46 98.6 F 86 16 127/75 91 04/04/19 17:08 97.5 F L 78 16 119/74 95 04/04/19 16:52 97.9 F 77 16 122/73 96 04/04/19 16:42 76 14 121/75 95 04/04/19 16:32 97.7 F 83 14 119/75 94 04/04/19 16:22 75 14 135/74 93 04/04/19 16:12 78 16 122/72 93 04/04/19 16:02 97.3 F L 83 16 143/82 92 04/04/19 13:25 81 112/86 94 04/04/19 13:07 88 123/85 96 04/04/19 10:41 98.3 F 98 18 153/81 96 Intake and Output 04/04/19 04/04/19 04/05/19 15:59 23:59 07:59 Intake Total 720 / 720 240 / 240 Output Total 300 / 300 400 / 400 Balance -300 / 420 720 / 420 -160 / -160 Intake: Oral 720 / 720 240 / 240 Output: Urine 400 / 400 Estimated Blood Loss 300 / 300 Other: Meal Dinner Percent of Meal Consumed 100% # Voids 1 1 # Urine Diapers 1 Weight 94.347 kg Blood Glucose* 143 373 - Labs CBC & BMP: 04/04/19 16:23 Labs: Abnormal lab results POC Glucose 373 mg/dL (70-99) H 04/04/19 22:35 Consult Discharge Plan - Plan Referrals: Jag French, [employer] ASSISTANT [Primary Care Provider] -
[2019-04-05 07:04] LABS: Basophils % 0.1 %; Hematocrit 34.2 % (35.3-44.9); Hemoglobin 11.3 g/dL (11.5-15.4); Immature Granulocytes % 0.8 % (0-4); Lymphocytes # 1.4 K/mcL (0.6-4.6); Lymphocytes % 6.6 %; Mean Corpuscular Hemoglobin 30.6 pg (28.0-33.3); Mean Corpuscular Volume 92.7 fL (83.0-100.0); Mean Platelet Volume 9.3 fL (9.4-12.4); Monocytes # 0.8 K/mcL (0.0-1.3); Monocytes % 3.9 %; Neutrophils # 18.8 K/mcL (1.6-8.9); Platelet Count 262 K/mcL (140-400); Red Blood Count 3.69 M/mcL (3.82-4.97); Red Cell Distribution Width 14.6 % (11.5-14.5); Segmented Neutrophils % 88.6 %; White Blood Count 21.2 K/mcL (4.3-11.1)
[2019-04-05 07:22] LABS: BUN/Creatinine Ratio 19 (6-26); Blood Urea Nitrogen 12 mg/dL (6-20); Calcium 9.1 mg/dL (8.6-10.3); Carbon Dioxide 25 mEq/L (23-29); Chloride 103 mEq/L (98-107); Glucose 229 mg/dL (70-105); Osmolality,Calculated 293 (280-300); Potassium 4.7 mEq/L (3.5-5.1); Sodium 138 mEq/L (136-145); eGFR For African Americans > 60 (> 60); eGFR For Non-African Americans > 60 (> 60)
[2019-04-05] MEDS ORDERED: *HR* Metformin 500 MG TABLET PO SCH (08:00)
[2019-04-05] MEDS: Ascorbic Acid 500 MG TABLET PO SCH (08:10)
[2019-04-05] MEDS: Gabapentin 300 MG CAPSULE PO SCH (08:12)
[2019-04-05] MEDS: Insulin LISPRO 300 UNITS/3 ML VIAL SQ SCH ×2 (08:23→12:18)
[2019-04-05] MEDS ORDERED: Diltiazem CD (24hr) 180 MG CAPSULE PO SCH (09:00)
[2019-04-05] MEDS ORDERED: Multivit/Ca/Min/Fe/FA 1 TAB TABLET PO SCH (09:00)
[2019-04-05] MEDS ORDERED: *HR* Methotrexate 2.5 MG TABLET PO SCH (11:33)
[2019-04-05 11:48] VITALS: BP 118/72
== END 2019-04-05 12:51 | disposition home health service (06) | DRG 302 ==
LOC: SAMDAY 10:17 → 3NENU 16:56
PROVIDERS: ADMIT Orthopaedic Surgery; ATTEND Orthopaedic Surgery